=== PATIENT | male | born 2000 | race Caucasian/White ===

== ENCOUNTER 2021-04-06 13:52 | Emergency (ER) | payer OTHER ==
[~2021-04-06] VITALS: Ht 185.4 cm; Wt 109.9 kg
[2021-04-06] MEDS ORDERED: KETOROLAC 30 MG/1 ML ONE (14:27)
[2021-04-06] MEDS ORDERED: KETOROLAC 30 MG/1 ML IV ONE (14:30)
[2021-04-06] MEDS ORDERED: SODIUM CHLORIDE FLUSH 10ML SYR IVF ONE (14:30)
--- NOTE | 2021-04-06 14:49 | NUR ---
BEDSIDE REPORT TO MARIANA ROSS. PT MEDICATED FOR PAIN ORDERED ON DEC. PT DENIES FURTHER NEEDS AT THIS TIME. VSS. CALL LIGHT W/IN REACH, PT INSTRUCTED ON USE, VERBALIZED UNDERSTANDING.
--- NOTE | 2021-04-06 14:51 | NUR ---
ASSUMED CARE OF PATIENT. BEDSIDE REPORT GIVEN FROM JUAN RN
[2021-04-06] MEDS ORDERED: NEOSPORIN OINT. PKT 1 PACKET ONE (15:30)
[2021-04-06 16:16] VITALS: BP 136/72
== END 2021-04-06 16:20 | disposition home or self-care (01) ==
LOC: ED 14:15
DX: S53.402A Unspecified sprain of left elbow, initial encounter (principal); S53.401A Unspecified sprain of right elbow, initial encounter; S83.92XA Sprain of unspecified site of left knee, initial encounter; V00.131A Fall from skateboard, initial encounter; Y93.51 Activity, roller skating (inline) and skateboarding; Y92.410 Unspecified street and highway as the place of occurrence of the external cause; Y99.8 Other external cause status
CPT/HCPCS: 73080; 73090; 73564; 96374; 99284; J1885